=== PATIENT | male | born 1935 | race Caucasian/White ===

== ENCOUNTER 2016-04-18 01:36 | Inpatient (IN) | payer MEDICARE ==
[~2016-04-18] VITALS: Ht 172.7 cm; Wt 68.0 kg
[2016-04-18] VITALS (7 sets, daily range): BP systolic 110–124; RESP 14–18; TEMP 97.9–98.3; Ht 172.7 cm; Wt 68.0 kg
[2016-04-18] MEDS ORDERED: BISACODYL 10 MG SUPP RECTAL PRN (04:50)
[2016-04-18] MEDS ORDERED: MAG HYDROX 30 ML UDC PO PRN ×2 (04:50)
[2016-04-18] MEDS ORDERED: PHARMACY TO DOSE VANCOMYCIN IV SCH (04:50)
[2016-04-18] MEDS ORDERED: PHARMACY TO DOSE ZOSYN IV SCH (04:50)
[2016-04-18] MEDS ORDERED: SALINE FLUSH 10 ML FLUSH PRN (04:50)
[2016-04-18] MEDS ORDERED: ALU/MAG/SIM 30 ML UDC PO PRN (04:50)
[2016-04-18] MEDS ORDERED: BISACODYL EC 5 MG TAB PO PRN (04:50)
[2016-04-18] MEDS ORDERED: SODIUM CHLORIDE 0.9% 1,000 ML IV SCH (05:00)
[2016-04-18] MEDS ORDERED: OXYCODONE 5 MG TAB PO PRN (05:00)
[2016-04-18] MEDS ORDERED: PIPERACIL/TAZO 3.375GM/50ML 50 ML IV ONE (05:20)
[2016-04-18] MEDS ORDERED: VANCOMYCIN 1,250 MG in SODIUM CHLORIDE 0.9% 250 ML IV ONE (05:20)
[2016-04-18] MEDS: SODIUM CHLORIDE 0.9% FLUSH BAG 500 ML IV SCH ×2 (06:00→06:39)
[2016-04-18] MEDS: SALINE FLUSH 10 ML FLUSH SCH ×2 (09:08→20:33)
[2016-04-18] MEDS ORDERED: METOPROLOL TART 25 MG TAB PO SCH (10:13)
[2016-04-18] MEDS: DEXAMETHASONE EYE RT SCH ×3 (12:00→23:48)
[2016-04-18] MEDS: TOBRAMYCIN EYE RT SCH ×3 (12:00→23:48)
[2016-04-18] MEDS: CITALOPRAM 20 MG TAB PO SCH (12:37)
[2016-04-18] MEDS: PIPERACIL/TAZO 3.375GM/50ML 50 ML IV SCH ×3 (12:37→23:48)
[2016-04-18] MEDS: [UNRECOGNIZED DRUG - REMARK] XX SCH ×2 (12:40→20:00)
[2016-04-18] MEDS ORDERED: LEVOTHYROXINE 0.1 MG TAB PO SCH ×2 (13:55→21:00)
[2016-04-18] MEDS: VALSARTAN 80 MG TAB PO SCH (14:38)
[2016-04-18] MEDS: HCTZ 25 MG TAB PO SCH (14:38)
[2016-04-18] MEDS: VANCOMYCIN 1,250 MG in SODIUM CHLORIDE 0.9% 250 ML IV SCH (20:05)
[2016-04-18] MEDS: amLODIPine 2.5 MG TAB PO SCH (20:06)
[2016-04-18] MEDS: DOXAZOSIN 4 MG TAB PO SCH (20:06)
[2016-04-18] MEDS: METOPROLOL TART 25 MG TAB PO SCH (20:10)
[2016-04-18] MEDS ORDERED: LEVOTHYROXINE 0.1 MG IV SCH (21:00)
[2016-04-19 04:05] VITALS: BP_SYST 145; RESP 16; TEMP 97.6
[2016-04-19] MEDS: TOBRAMYCIN EYE RT SCH ×3 (06:00→18:00)
[2016-04-19] MEDS: DEXAMETHASONE EYE RT SCH ×3 (06:00→18:00)
[2016-04-19] MEDS: PIPERACIL/TAZO 3.375GM/50ML 50 ML IV SCH ×3 (06:05→18:05)
[2016-04-19] MEDS: SODIUM CHLORIDE 0.9% FLUSH BAG 500 ML IV SCH (06:05)
[2016-04-19 07:32] VITALS: BP_SYST 124; RESP 16; TEMP 97.7
[2016-04-19] MEDS: [UNRECOGNIZED DRUG - REMARK] XX SCH ×2 (08:00→20:00)
[2016-04-19] MEDS: VANCOMYCIN 1,250 MG in SODIUM CHLORIDE 0.9% 250 ML IV SCH (08:20)
[2016-04-19] MEDS: SALINE FLUSH 10 ML FLUSH SCH ×2 (08:20→21:13)
[2016-04-19] MEDS: VALSARTAN 80 MG TAB PO SCH (08:20)
[2016-04-19] MEDS: CITALOPRAM 20 MG TAB PO SCH (08:21)
[2016-04-19] MEDS: HCTZ 25 MG TAB PO SCH (08:21)
[2016-04-19] MEDS: METOPROLOL TART 25 MG TAB PO SCH ×2 (08:21→21:13)
[2016-04-19 11:10] VITALS: BP_SYST 109; RESP 18; TEMP 97.4
[2016-04-19 15:14] VITALS: BP_SYST 125; RESP 16; TEMP 97.4
[2016-04-19] MEDS: CEFTRIAXONE 1 GM in SODIUM CHLORIDE 0.9% 50 ML IV SCH (18:52)
[2016-04-19 19:42] VITALS: BP_SYST 110; RESP 14; TEMP 98.1
[2016-04-19] MEDS ORDERED: LEVOTHYROXINE 0.075 MG TAB PO SCH (21:00)
[2016-04-19] MEDS: DOXAZOSIN 4 MG TAB PO SCH (21:13)
[2016-04-19] MEDS ORDERED: MISSING DOSE XX ONE ×2 (21:15)
[2016-04-19] MEDS: amLODIPine 2.5 MG TAB PO SCH (21:25)
[2016-04-19 23:11] VITALS: BP_SYST 126; RESP 16; TEMP 97.7
[2016-04-20 03:29] VITALS: BP_SYST 133; RESP 16; TEMP 97.4
[2016-04-20] MEDS: SODIUM CHLORIDE 0.9% FLUSH BAG 500 ML IV SCH (06:25)
[2016-04-20 08:05] VITALS: BP_SYST 130; RESP 16; TEMP 97.5
[2016-04-20] MEDS: CEFTRIAXONE 1 GM in SODIUM CHLORIDE 0.9% 50 ML IV SCH (08:34)
[2016-04-20] MEDS: SALINE FLUSH 10 ML FLUSH SCH (08:35)
[2016-04-20] MEDS: VALSARTAN 80 MG TAB PO SCH (08:35)
[2016-04-20] MEDS: METOPROLOL TART 25 MG TAB PO SCH (08:35)
[2016-04-20] MEDS: HCTZ 25 MG TAB PO SCH (08:35)
[2016-04-20] MEDS: CITALOPRAM 20 MG TAB PO SCH (08:35)
[2016-04-20 12:29] VITALS: BP_SYST 118; RESP 16; TEMP 97.8
[2016-04-20 15:07] VITALS: BP_SYST 118; RESP 16; TEMP 97.8
== END 2016-04-20 15:19 | disposition home or self-care (01) | DRG 728 ==
LOC: ENPENDDIS 04:35 → 5THW 04:35
PROVIDERS: ADMIT Internal Medicine; ATTEND Internal Medicine
DX: N45.3 Epididymo-orchitis (principal); I48.2 Chronic atrial fibrillation; N39.0 Urinary tract infection, site not specified; N13.8 Other obstructive and reflux uropathy; B96.20 Unspecified Escherichia coli [E. coli] as the cause of diseases classified elsewhere; I10 Essential (primary) hypertension; I35.1 Nonrheumatic aortic (valve) insufficiency; Z16.24 Resistance to multiple antibiotics; Z79.01 Long term (current) use of anticoagulants; E03.9 Hypothyroidism, unspecified; N40.1 Benign prostatic hyperplasia with lower urinary tract symptoms
CPT/HCPCS: 80048; 80202; 81001; 82553; 84484; 85025; 93005; 93306; 94799; 99223; 99232; 99233